=== PATIENT | male | born 1990 | race Caucasian/White ===

== ENCOUNTER 2018-05-22 20:30 | Emergency (ER) | payer OTHER ==
[~2018-05-22] VITALS: Ht 190.5 cm; Wt 80.4 kg
[2018-05-22 20:33] VITALS: BP 118/80
[2018-05-22] MEDS ORDERED: BACITRACIN ZINC OINT 500U/GM, 0.9 GM ONE (20:52)
== END 2018-05-22 21:46 | disposition home or self-care (01) ==
LOC: ED 21:40
DX: S50.311A Abrasion of right elbow, initial encounter (principal); S60.811A Abrasion of right wrist, initial encounter; S60.511A Abrasion of right hand, initial encounter; S80.212A Abrasion, left knee, initial encounter; S80.211A Abrasion, right knee, initial encounter; F17.210 Nicotine dependence, cigarettes, uncomplicated; V23.0XXA Motorcycle driver injured in collision with car, pick-up truck or van in nontraffic accident, initial encounter; Y93.89 Activity, other specified; Y92.89 Other specified places as the place of occurrence of the external cause; Y99.8 Other external cause status
CPT/HCPCS: 99284

== ENCOUNTER 2021-03-09 17:37 | Emergency (ER) | payer SELFPAY ==
[~2021-03-09] VITALS: Ht 190.5 cm; Wt 87.3 kg
[2021-03-09 17:58] VITALS: BP 108/72
[2021-03-09] MEDS ORDERED: FLUORESCEIN OPHTHALMIC 1 MG STRIP EACHEYE ONE (19:00)
[2021-03-09] MEDS ORDERED: PROPARACAINE OPHTH 0.5%, 15ML EACHEYE ONE (19:00)
[2021-03-09] MEDS ORDERED: PROPARACAINE OPHTH 0.5%, 15ML ONE (19:15)
[2021-03-09] MEDS ORDERED: FLUORESCEIN OPHTHALMIC 1 MG STRIP ONE (19:15)
== END 2021-03-09 20:28 | disposition home or self-care (01) ==
LOC: ED 18:00
DX: S05.02XA Injury of conjunctiva and corneal abrasion without foreign body, left eye, initial encounter (principal); H10.022 Other mucopurulent conjunctivitis, left eye; F17.210 Nicotine dependence, cigarettes, uncomplicated; X58.XXXA Exposure to other specified factors, initial encounter; Y93.89 Activity, other specified; Y92.89 Other specified places as the place of occurrence of the external cause; Y99.8 Other external cause status
CPT/HCPCS: 99406